=== PATIENT | male | born 1930 | race Caucasian/White ===

== ENCOUNTER 2018-10-16 07:52 | Observation (INO) ==
[2018-10-16] MEDS ORDERED: SODIUM CHLORIDE 0.9% 1000ML 1,000 ML IV SCH (08:15)
[2018-10-16 09:01] LABS: Appearance Urine Clear (Clear); Bilirubin Urine Negative (Negative); Blood Urine Trace (Negative); Color Urine Yellow; Glucose Urine UA Negative (Negative); Ketones Urine 1+ (Negative); Leukocyte Esterase Urine Negative (Negative); Nitrite Urine Negative (Negative); Protein Urine Trace (Negative); Specific Gravity Urine 1.023 (1.000-1.030); Urobilinogen Urine Negative (Negative)
[2018-10-16 09:14] LABS: Basophils # (auto) 0.03 K/uL (0-0.2); Basophils % (auto) 0.2 %; Eosinophils # (auto) 0.01 K/uL (0-0.5); Eosinophils % (auto) 0.1 %; Hematocrit (blood only) 45.2 % (42-52); Hemoglobin 15.4 g/dL (14.0-18.0); Immature Granulocytes # (auto) 0.05 K/uL (0.00-0.02); Immature Granulocytes % (auto) 0.3 %; Lymphocytes # (auto) 1.65 K/uL (1.2-3.4); Lymphocytes % (auto) 9.4 %; Mean Corpuscular Hgb Conc 34.1 g/dL (32-36); Mean Corpuscular Volume 99.6 fL (80-100); Mean Platelet Volume 11.6 fL (7.4-10.4); Monocytes # (auto) 0.72 K/uL (0.11-0.59); Monocytes % (auto) 4.1 %; Neutrophils # (auto) 15.12 K/uL (1.4-6.5); Neutrophils % (auto) 85.9 %; Platelet Count 143 K/uL (130-400); RDW Standard Deviation 50.3 fL (36.4-46.3); Red Blood Count 4.54 M/uL (4.7-6.1); White Blood Count 17.58 K/uL (4.8-10.8)
[2018-10-16 09:21] LABS: Prothrombin Time 10.3 Seconds (9.0-12.0)
[2018-10-16] MEDS ORDERED: ACETAMINOPHEN 500 MG TAB PO STA (09:22)
--- NOTE | 2018-10-16 09:31 | CT Scan Report ---
CT SCAN OF THE BRAIN WITHOUT IV CONTRAST CLINICAL HISTORY: Fall. COMPARISON STUDY: No priors. TECHNIQUE: Unenhanced axial CT scan of the brain is performed from the vertex to the skull base. A do se lowering technique was utilized adhering to the principles of ALARA. CT DOSE: 614.27 mGy.cm FINDINGS: Brain parenchyma: There are age-related involutional changes noting moderate subcortical and periven tricular microangiopathic change. There is no hemorrhage, mass effect, or evidence of acute territori al ischemia by CT criteria. Henderson-white matter differentiation is preserved. No extra-axial fluid rob ection is seen. Ventricles, sulci, cisterns: Prominent secondary to involutional change. Intracranial vasculature: There is atherosclerotic calcification of the cavernous carotid and vertebr al arteries. Calvarium: The skeletal structures are osteopenic. No depressed calvarial fracture is seen. Sinuses and mastoids: The visualized paranasal sinuses are clear. The mastoid air cells are well pneu matized. Orbits: The bony orbits are grossly intact. IMPRESSION: There is no hemorrhage, mass effect, or evidence of acute territorial ischemia by CT antionette lópez. Electronically signed by: Mikey Hong M.D. 10/16/2018 9:30 AM
[2018-10-16 09:32] LABS: Albumin Level 3.7 gm/dl (3.4-5.0); Calcium 9.4 mg/dl (8.5-10.1); Est GFR (African American) 78.1; Est GFR (Non-African American) 67.4; Potassium 4.6 mmol/L (3.5-5.1)
--- NOTE | 2018-10-16 09:38 | XRay Report ---
LEFT SHOULDER 3 VIEWS CLINICAL HISTORY: Fall. Shoulder pain. FINDINGS: 3 views of the left shoulder are obtained. No prior studies are available for comparison at the time of dictation. The skeletal structures are osteopenic. There is no radiographic evidence of fracture or dislocation. Productive degenerative change is noted at the acromioclavicular joint. The glenohumeral articulation appears preserved. Degenerative sclerosis is seen in the greater tuberosity of the humeral head. The overlying soft tissues are normal in appearance. Atherosclerotic calcificat ion is noted in the left brachial artery. The visualized left lung parenchyma appears clear. Midline sternotomy wires are noted. IMPRESSION: 1. There is no radiographic evidence of left shoulder fracture or dislocation. 2. Osteopenia and degenerative change as above. Electronically signed by: Mikey Hong M.D. 10/16/2018 9:36 AM
[2018-10-16 09:41] LABS: Bilirubin,Total 0.8 mg/dl (0.2-1); Creatine Kinase MB 8.7 ng/ml (0.5-3.6); Globulin 3.8 gm/dl (2.5-4.0); Total Protein 7.5 gm/dl (6.4-8.2); Troponin I 0.233 ng/ml (0-0.045)
--- NOTE | 2018-10-16 09:47 | XRay Report ---
XR chest 1V portable CLINICAL HISTORY: Chest Pain dyspnea COMPARISON STUDY: No previous studies for comparison. FINDINGS: Mild cardia megaly. Prior median sternotomy. Lungs are clear. Platelike atelectasis right b ase. IMPRESSION: Mild cardiomegaly. No acute process. The above report was generated using voice recognition software. It may contain grammatical, syntax or spelling errors. Electronically signed by: Telly Martinez M.D. 10/16/2018 9:45 AM
[2018-10-16 10:14] LABS: Bacteria Urine Negative (Negative); Epithelial Cell Urine 0-5 /lpf (0-5); RBC Urine 0-4 /hpf (0-4); WBC Urine 0-5 /hpf (0-5)
--- NOTE | 2018-10-16 10:16 | Emergency Department Note ---
Entered by Tiffanie Stone acting as a scribe for Kevin May DO History of Present Illness General Chief complaint: Fall Stated complaint: fall/ arm pain, skin tears Time Seen by Provider: 10/16/18 07:54 Source: patient and family (daughter) History of Present Illness Provider complaint: fall Onset (ago): hour(s) 10 Location: left and right Pain Consistency: + other (episode) Quality: + other (fall) Associated symptoms: + other (upper right arm pain, left shoulder pain, right hip pain. denies: neck pain, back pain, loss of consciousness) The patient is an 88 year old male who presents to the Emergency Room with complaints of an episode of a fall beginning 10 hours ago. His daughter reports the patient lives with her, and was laying on the bathroom floor for about 8 hours before she found him this the morning. The patient notes he fell while brushing his teeth. He reports upper right arm pain, left shoulder pain, and right hip pain. He denies neck or back pain. The patient denies hitting his head or any loss of consciousness in the fall. He states he is on Plavix. His daughter notes the patient usually wears oxygen last night, but did not last night. Home Medications Home Medications Medication Instructions Recorded Confirmed Type albuterol sulfate [ProAir HFA] 2 puff INHALATION Q4H PRN 10/16/18 10/16/18 History allopurinol 300 mg PO DAILY 10/16/18 10/16/18 History atorvastatin 40 mg PO DAILY 10/16/18 10/16/18 History benzonatate 100 mg PO TID PRN 10/16/18 10/16/18 History budesonide-formoterol [Symbicort] 2 puff INHALATION BID 10/16/18 10/16/18 History cephalexin 2,000 mg PO UD 10/16/18 10/16/18 History clobetasol 1 applic TOPICAL BID 10/16/18 10/16/18 History clopidogrel 75 mg PO DAILY 10/16/18 10/16/18 History colchicine 0.6 mg PO UD 10/16/18 10/16/18 History finasteride 5 mg PO DAILY 10/16/18 10/16/18 History fluticasone 2 spray INTRANASAL DAILY 10/16/18 10/16/18 History guaifenesin [Mucinex] 600 mg PO Q12H 10/16/18 10/16/18 History ipratropium-albuterol 3 ml INHALATION Q6H PRN 10/16/18 10/16/18 History wyjvr-[id number]-2-hmr-qnz-cswwmac-ast 1 cap PO DAILY 10/16/18 10/16/18 History [krill oil] lisinopril 5 mg PO DAILY 10/16/18 10/16/18 History montelukast 10 mg PO HS 10/16/18 10/16/18 History multivitamin 1 tab PO DAILY 10/16/18 10/16/18 History oxybutynin chloride 10 mg PO DAILY 10/16/18 10/16/18 History prednisone 10 mg PO DAILY 10/16/18 10/16/18 History triamcinolone acetonide 1 applic TOPICAL BID 10/16/18 10/16/18 History Allergies Allergy/AdvReac Type Severity Reaction Status Date / Time codeine AdvReac Severe Confusion Unverified 10/16/18 08:32 Past Med/Surg History Medical History HTN (hypertension) (Chronic) Social History Feels Safe at Home: Yes Smoking Status: Former smoker Review of Systems See HPI for pertinent positives & negatives. and A total of 10 systems reviewed and were otherwise negative Physical Exam Vital Signs Vital Signs - 24 hr 10/16/18 08:03 10/16/18 08:11 10/16/18 09:19 Temperature 36.8 C Temperature Source Oral Sepsis Recent Fever Within 48 Hours No Sepsis New/Unexplained Change in Mental Status No Sepsis Action Taken by Nursing No Action Required Pulse Rate 89 Pulse Rate [Left Finger] 81 Respiratory Rate 18 20 Blood Pressure 178/71 H Blood Pressure [Left Arm] 171/50 H Blood Pressure Mean 106 Blood Pressure Mean [Left Arm] 90 Pulse Oximetry 97 92 93 Oxygen Delivery Method Room Air Room Air Room Air 10/16/18 10:09 Temperature Temperature Source Sepsis Recent Fever Within 48 Hours Sepsis New/Unexplained Change in Mental Status Sepsis Action Taken by Nursing Pulse Rate Pulse Rate [Left Finger] 84 Respiratory Rate 20 Blood Pressure Blood Pressure [Left Arm] 172/58 H Blood Pressure Mean Blood Pressure Mean [Left Arm] 96 Pulse Oximetry 93 Oxygen Delivery Method CONSTITUTIONAL/VITAL SIGNS: Reviewed / noted above. GENERAL: Non-toxic in appearance. INTEGUMENTARY: Small skin tear to right lateral foot. Skin tear, about 3 inches by 2 inches, on right lateral arm with some surrounding ecchymosis. Ecchymosis diffusely around left arm. 2 inch by 0.25 inch skin tear to left lateral upper arm HEAD: Normocephalic. EYES: without scleral icterus or trauma. ENT/OROPHARYNX: clear and moist. LYMPHADENOPATHY/NECK: Is supple without lymphadenopathy or meningismus. RESPIRATORY: Lungs clear and equal. CARDIOVASCULAR: Regular rate and rhythm. GI/ABDOMEN: Soft and nontender. No organomegaly or pulsatile mass. No rebound or guarding. Normal bowel sounds. EXTREMITIES: Warm and well perfused. Mild discomfort with movement of left shoulder. BACK: No CVA tenderness. NEUROLOGICAL: Intact without focal deficits. PSYCHIATRIC: normal affect. MUSCULOSKELETAL: Normally developed with good muscle tone. Course 0758: Past medical records reviewed. The patient was evaluated in room C7, and a complete history and physical examination were performed. 1004: I reviewed the patient's case with Saumya Doll PA-C, [facility]. She will evaluate the patient for further management. 1007: Upon reevaluation, the patient is resting. I discussed test results with the patient and his family. They verbalized agreement with the treatment plan. Consultations Consultation #1: Saumya Doll PA-C, [facility]. Time: 10:04 Administered Medications Discontinued Medications Acetaminophen (Tylenol) 500 mg PO NOW STA Stop: 10/16/18 09:23 Last Admin: 10/16/18 09:24 Dose: 500 mg Documented by: [id number] Sodium Chloride (Nss 1000ml) 1,000 mls @ 999 mls/hr IV .Q1H1M [facility] Stop: 10/16/18 09:15 Last Admin: 10/16/18 09:04 Dose: 999 mls/hr Documented by: [id number] Medical Decision Making Differential Diagnosis Differential includes acute cardiac dysrhythmia, microinfarction, CVA, TIA, dehydration, anemia, electrolyte disturbance, seizure, trauma, intracranial b leeding, acute vascular catastrophe, thoracic aortic dissection, PE, abdominal aortic aneurysm rupture, ectopic rupture. Medical Records Attestation: I reviewed the patient's medical records. Home Medications Current Medication List: was personally reviewed by me Laboratory Data Attestation: I reviewed the patient's lab results. Result diagrams: 10/16/18 08:54 10/16/18 08:54 Lab Results 10/16/18 10/16/18 10/16/18 Range/Units 08:45 08:54 08:54 WBC 17.58 H (4.8-10.8) K/uL RBC 4.54 L (4.7-6.1) M/uL Hgb 15.4 (14.0-18.0) g/dL Hct 45.2 (42-52) % MCV 99.6 (80-100) fL MCH 33.9 (25-34) pg MCHC 34.1 (32-36) g/dL RDW Std Deviation 50.3 H (36.4-46.3) fL RDW Coeff of John 14.0 (11.5-14.5) % Plt Count 143 (130-400) K/uL MPV 11.6 H (7.4-10.4) fL Immature Gran % (Auto) 0.3 % Neut % (Auto) 85.9 % Lymph % (Auto) 9.4 % Moffat % (Auto) 4.1 % Eos % (Auto) 0.1 % Baso % (Auto) 0.2 % Immature Gran # (Auto) 0.05 H (0.00-0.02) K/uL Neut # (Auto) 15.12 H (1.4-6.5) K/uL Lymph # (Auto) 1.65 (1.2-3.4) K/uL Moffat # (Auto) 0.72 H (0.11-0.59) K/uL Eos # (Auto) 0.01 (0-0.5) K/uL Baso # (Auto) 0.03 (0-0.2) K/uL PT (9.0-12.0) Seconds INR (0.9-1.1) Sodium 136 (136-145) mmol/L Potassium 4.6 (3.5-5.1) mmol/L Chloride 101 (98-107) mmol/L Carbon Dioxide 25 (21-32) mmol/L Anion Gap 11.0 (3-11) BUN 38 H (7-18) mg/dl Creatinine 1.00 (0.6-1.4) mg/dl Est Cr Clr Drug Dosing 58.0 ml/min Est GFR ( Amer) 78.1 Est GFR (Non-Af Amer) 67.4 BUN/Creatinine Ratio 38.0 H (10-20) Glucose 81 (70-99) mg/dl Calcium 9.4 (8.5-10.1) mg/dl Total Bilirubin 0.8 (0.2-1) mg/dl AST 34 (15-37) U/L ALT 32 (12-78) U/L Alkaline Phosphatase 59 (45-117) U/L Total Creatine Kinase 475 H (39-308) U/L CK-MB (CK-2) 8.7 H (0.5-3.6) ng/ml CK/CKMB % Calc 1.8 (0-3.0) Troponin I 0.233 H* (0-0.045) ng/ml Total Protein 7.5 (6.4-8.2) gm/dl Albumin 3.7 (3.4-5.0) gm/dl Globulin 3.8 (2.5-4.0) gm/dl Albumin/Globulin Ratio 1.0 (0.9-2) Urine Color Yellow Urine Appearance Clear (Clear) Urine pH 5.0 (4.5-7.5) Ur Specific Marble 1.023 (1.000-1.030) Urine Protein Trace H (Negative) Urine Glucose (UA) Negative (Negative) Urine Ketones 1+ H (Negative) Urine Blood Trace H (Negative) Urine Nitrite Negative (Negative) Urine Bilirubin Negative (Negative) Urine Urobilinogen Negative (Negative) Ur Leukocyte Esterase Negative (Negative) Urine RBC 0-4 (0-4) /hpf Urine WBC 0-5 (0-5) /hpf Ur Epithelial Cells 0-5 (0-5) /lpf Urine Bacteria Negative (Negative) 10/16/18 10/16/18 Range/Units 08:54 08:54 WBC (4.8-10.8) K/uL RBC (4.7-6.1) M/uL Hgb (14.0-18.0) g/dL Hct (42-52) % MCV (80-100) fL MCH (25-34) pg MCHC (32-36) g/dL RDW Std Deviation (36.4-46.3) fL RDW Coeff of John (11.5-14.5) % Plt Count (130-400) K/uL MPV (7.4-10.4) fL Immature Gran % (Auto) % Neut % (Auto) % Lymph % (Auto) % Moffat % (Auto) % Eos % (Auto) % Baso % (Auto) % Immature Gran # (Auto) (0.00-0.02) K/uL Neut # (Auto) (1.4-6.5) K/uL Lymph # (Auto) (1.2-3.4) K/uL Moffat # (Auto) (0.11-0.59) K/uL Eos # (Auto) (0-0.5) K/uL Baso # (Auto) (0-0.2) K/uL PT 10.3 (9.0-12.0) Seconds INR 1.0 (0.9-1.1) Sodium (136-145) mmol/L Potassium (3.5-5.1) mmol/L Chloride (98-107) mmol/L Carbon Dioxide (21-32) mmol/L Anion Gap (3-11) BUN (7-18) mg/dl Creatinine (0.6-1.4) mg/dl Est Cr Clr Drug Dosing ml/min Est GFR ( Amer) Est GFR (Non-Af Amer) BUN/Creatinine Ratio (10-20) Glucose (70-99) mg/dl Calcium (8.5-10.1) mg/dl Total Bilirubin (0.2-1) mg/dl AST (15-37) U/L ALT (12-78) U/L Alkaline Phosphatase (45-117) U/L Total Creatine Kinase (39-308) U/L CK-MB (CK-2) Cancelled (0.5-3.6) ng/ml CK/CKMB % Calc Cancelled (0-3.0) Troponin I (0-0.045) ng/ml Total Protein (6.4-8.2) gm/dl Albumin (3.4-5.0) gm/dl Globulin (2.5-4.0) gm/dl Albumin/Globulin Ratio (0.9-2) Urine Color Urine Appearance (Clear) Urine pH (4.5-7.5) Ur Specific Marble (1.000-1.030) Urine Protein (Negative) Urine Glucose (UA) (Negative) Urine Ketones (Negative) Urine Blood (Negative) Urine Nitrite (Negative) Urine Bilirubin (Negative) Urine Urobilinogen (Negative) Ur Leukocyte Esterase (Negative) Urine RBC (0-4) /hpf Urine WBC (0-5) /hpf Ur Epithelial Cells (0-5) /lpf Urine Bacteria (Negative) Imaging Data Radiologist's Impression: Radiology results as stated below per my review and the radiologist's interpretation: CT SCAN OF THE BRAIN WITHOUT IV CONTRAST CLINICAL HISTORY: Fall. COMPARISON STUDY: No priors. TECHNIQUE: Unenhanced axial CT scan of the brain is performed from the vertex to the skull base. A dose lowering technique was utilized adhering to the principles of ALARA. CT DOSE: 614.27 mGy.cm FINDINGS: Brain parenchyma: There are age-related involutional changes noting moderate subcortical and periventricular microangiopathic change. There is no hemorrhage, mass effect, or evidence of acute territorial ischemia by CT criteria. Henderson- white matter differentiation is preserved. No extra-axial fluid collection is seen. Ventricles, sulci, cisterns: Prominent secondary to involutional change. Intracranial vasculature: There is atherosclerotic calcification of the cavernous carotid and vertebral arteries. Calvarium: The skeletal structures are osteopenic. No depressed calvarial fracture is seen. Sinuses and mastoids: The visualized paranasal sinuses are clear. The mastoid air cells are well pneumatized. Orbits: The bony orbits are grossly intact. IMPRESSION: There is no hemorrhage, mass effect, or evidence of acute territorial ischemia by CT criteria. Electronically signed by: Mikey Hong M.D. 10/16/2018 9:30 AM LEFT SHOULDER 3 VIEWS CLINICAL HISTORY: Fall. Shoulder pain. FINDINGS: 3 views of the left shoulder are obtained. No prior studies are available for comparison at the time of dictation. The skeletal structures are osteopenic. There is no radiographic evidence of fracture or dislocation. Productive degenerative change is noted at the acromioclavicular joint. The g lenohumeral articulation appears preserved. Degenerative sclerosis is seen in the greater tuberosity of the humeral head. The overlying soft tissues are normal in appearance. Atherosclerotic calcification is noted in the left brachial artery. The visualized left lung parenchyma appears clear. Midline sternotomy wires are noted. IMPRESSION: 1. There is no radiographic evidence of left shoulder fracture or dislocation. 2. Osteopenia and degenerative change as above. Electronically signed by: Mikey Hong M.D. 10/16/2018 9:36 AM XR chest 1V portable CLINICAL HISTORY: Chest Pain dyspnea COMPARISON STUDY: No previous studies for comparison. FINDINGS: Mild cardia megaly. Prior median sternotomy. Lungs are clear. Platelike atelectasis right base. IMPRESSION: Mild cardiomegaly. No acute process. The above report was generated using voice recognition software. It may contain grammatical, syntax or spelling errors. Electronically signed by: Telly Martinez M.D. 10/16/2018 9:45 AM ECG Data Attestation: I personally reviewed and interpreted this ECG as follows: Indication: other (fall) Rate (beats per minute): 88 Rhythm: normal sinus Findings: no PAC, no PVC and no ST elevation Blood Pressure Blood Pressure Findings: Elevated blood pressure Blood Pressure Disposition: elevated BP felt to be situational Head Trauma GCS Score: 15 MDM Narrative This is an 88-year-old male who presents to the ED with a chief complaint of a fall. The patient fell on the tile floor last night around 10 PM. His daughter found him at 630 this morning. He complains of left shoulder pain and has multiple skin tears and contusions throughout his extremities. He does not think that he hit his head. The patient's physical exam is noted above. He has multiple areas of bruising and skin tears on his upper and lower extremities. He has a large skin tear to the upper right lateral humeral area and a smaller one in the left lateral humeral area. He denies any abdominal tenderness or abdominal pains. He has no chest pains or shortness of breath at this time. A chest x-ray was negative for acute disease. X-ray of the left shoulder was negative for trauma. EKG shows a sinus rhythm at a rate of 88 without acute ischemic changes. His white blood cell count was 17.58. The BUN is 38. Creatinine was normal. Total CK was 475. Troponin is elevated at 0.2-3. Urine revealed trace ketones. The patient was hydrated with IV fluids. He and his family were told the results of the test. Because of the elevated troponin, the patient will be seen by the hospitalist for further inpatient evaluation of this. He does see Dr. Heck from [facility] cardiology. Impression & Plan Fall, Elevated troponin, Multiple skin tears, Multiple contusions Discharge Plan Visit Data Chief Complaint: Fall Stated Complaint: fall/ arm pain, skin tears ED Provider: Kevin May Discharge Problem: Fall, Elevated troponin, Multiple skin tears, Multiple contusions Patient Disposition: Being Evaluated by Hospitalist Forms Stand Alone Forms: [facility] Prescriptions Prescriptions: No Action multivitamin Tablet 1 tab PO DAILY RF: 0 atorvastatin 40 mg tablet 40 mg PO DAILY RF: 0 prednisone 10 mg tablet 10 mg PO DAILY RF: 0 ipratropium-albuterol 0.5 mg-3 mg(2.5 mg base)/3 mL solution for nebulization 3 ml Inhalation Q6H PRN (Reason: Shortness Of Breath Or Wheezing) RF: 0 oxybutynin chloride 10 mg tablet extended release 24hr 10 mg PO DAILY RF: 0 clobetasol 0.05 % cream 1 applic topical BID RF: 0 clopidogrel 75 mg tablet 75 mg PO DAILY RF: 0 triamcinolone acetonide 0.1 % cream 1 applic topical BID RF: 0 benzonatate 100 mg capsule 100 mg PO TID PRN (Reason: Cough) RF: 0 cephalexin 500 mg capsule 2,000 mg PO UD RF: 0 montelukast 10 mg tablet 10 mg PO HS RF: 0 allopurinol 300 mg tablet 300 mg PO DAILY RF: 0 lisinopril 5 mg tablet 5 mg PO DAILY RF: 0 albuterol sulfate [ProAir HFA] 90 mcg/actuation HFA aerosol inhaler 2 puff Inhalation Q4H PRN (Reason: Shortness Of Breath Or Wheezing) RF: 0 colchicine 0.6 mg tablet 0.6 mg PO UD RF: 0 fluticasone 50 mcg/actuation spray,suspension 2 spray Intranasal DAILY RF: 0 finasteride 5 mg tablet 5 mg PO DAILY RF: 0 Symbicort 160-4.5 mcg/actuation HFA aerosol inhaler 2 puff Inhalation BID RF: 0 wfwjq-dv-[id number]-yuf-uby-waegjao-ast [krill oil] 1,837-737-49-80 mg Capsule 1 cap PO DAILY RF: 0 guaifenesin [Mucinex] 600 mg Tablet Extended Release 12hr 600 mg PO Q12H RF: 0 Referrals Referrals: Armen Locke MD [Primary Care Provider] - Discharge Problem: Fall Qualifiers: Encounter type: initial encounter Qualified Code(s): W19.XXXA - Unspecified fall, initial encounter The scribe's documentation has been prepared under my direction and personally reviewed by me in its entirety. I confirm that the note above accurately reflect s all work, treatment, procedures, and medical decision making performed by me.
--- NOTE | 2018-10-16 11:15 | History & Physical Report ---
Date of Service October 16, 2018 Assessment & Plan (1) Fall: Pt with mechanical fall last night and was unable to get up and was on floor all night until this morning when found by daughter. C/O L shoulder pain, neck pain, upper back pain and R hip pain. Denies hitting head, LOC, SOB, CP, dizziness, palpitations. Has skin tears to bilateral upper extremities from fall In ER CT head: no acute changes, Xrays of L shoulder and pelvis show no fractures or dislocations. CT of C-Spine and Thoracic spine show no fractures. CXR: No acute process Pt given Tylenol in ER with reported some improvement of pain. -PT/OT eval -anticipate pt will need rehab placement, case management consulted (2) Elevated troponin: Troponin: 0.23, CPK: 475. No CP, SOB. EKG nonspecific ST changes In ER pt received 1L NSS -Monitor Vitals -Gentle IV fluids -Repeat EKG in am -Will trend troponin -Resting echo to evaluate for any wall motion abnormalities -Continue statin, plavix -Repeat CPK in am (3) Leukocytosis: WBC: 17. UA unremarkable for UTI, CXR: no acute process Pt reports last took prednisone one month ago. -monitor CBC (4) CAD (coronary artery disease): S/P CABG in 1989 Denies CP, SOB -as per above will trend troponin, repeat EKG (5) HTN (hypertension): -continue lisinopril (6) Dyslipidemia: -continue atorvastatin (7) Diabetes mellitus, type II: Diet controlled. A1c: 6.1 on 05/2018 -A1c in am -Diabetic diet, Monitor BSGs -Novolog sliding scale per protocol (8) COPD (chronic obstructive pulmonary disease): Chronic cough, denies increased cough. Denies SOB. -Continue duonebs, symbicort, singulair (9) PETRONA (obstructive sleep apnea): Hx PETRONA and nocturnal hypoxia. Does not use CPAP -continue 3L oxygen nasal cannula HS (10) PVD (peripheral vascular disease): History of femoral-popliteal bypass (11) BPH (benign prostatic hyperplasia): -continue finasteride, oxybutynin (12) Gout: -continue allopurinol DVT Prophylaxis -Heparin SQ DNR as per discussion with pt Follows with Dr Locke for routine care Pt was seen with Dr Fung. See addendum History of Present Illness Chief Complaint: Fall Primary Care Provider: Armen Locke MD Pt is 88 y/o M with PMH CAD s/p CABG in 1989, dyslipidemia, HTN, PVD, TIA, basal cell carcinoma to the face, COPD, diet-controlled DM II, BPH, PETRONA, gout, h/o bleeding peptic ulcer 2016 now off aspirin, presented to the ER complaint of fall that occurred last night. Pt states was brushing his teeth when he went to return to and reports he lost his balance and fell. He denies hitting head or LOC. Patient states he was unable to get himself up off the floor. He reports that he normally would be on the floor that he would not be able to get himself up secondary to lower extremity weakness. States has life alert however was not wearing at the time. His daughter found him this morning around 6:30 AM on the floor. Patient lives with daughter. Initially in ER pt c/o L shoulder pain and R hip pain. He reports hx getting injections to left shoulder, last approximately 6 months ago. Since ER arrival pt c/o neck and upper back pain. He denies CP, low back pain, YAO, other lower extremity pain. Reports chronic cough productive white sputum. Denies any recent worsening. Denies SOB. Uses duoneb TID for chronic cough. Denies fever/chills. Pt reports last took prednisone one month ago for cough. Sometimes takes prednisone for gout flares. Hx fall approx 6 months ago, reports tripped over shoe. Uses can and walker to ambulate. Denies fever/chills, diaphoresis, N/V/D/C, YAO, dizziness, syncope, vision changes, CP, orthopnea, palpitations, hemoptysis, sore throat, choking, otalgia, rhinorrhea, abdominal pain, paresthesias, extremity edema, new rashes, urinary symptoms. Hx echo 2017: EF: 60-64%, grade II diastolic dysfunction, moderate aortic valve sclerosis, mild tricupsid regurgitation, left atrium moderately enlarged. In ER pt found to have Tropnonin: 0.23, CPK: 475 and is being admitted for further evaluation. Allergies Allergy/AdvReac Type Severity Reaction Status Date / Time codeine AdvReac Severe Confusion Unverified 10/16/18 08:32 Home Medications Home Medications Medication Instructions Recorded Confirmed Type albuterol sulfate [ProAir HFA] 2 puff INHALATION Q4H PRN 10/16/18 10/16/18 History allopurinol 300 mg PO DAILY 10/16/18 10/16/18 History atorvastatin 40 mg PO PM 10/16/18 10/16/18 History benzonatate 100 mg PO TID PRN 10/16/18 10/16/18 History budesonide-formoterol [Symbicort] 2 puff INHALATION BID 10/16/18 10/16/18 His tory cephalexin 2,000 mg PO UD 10/16/18 10/16/18 History clobetasol 1 applic TOPICAL BID 10/16/18 10/16/18 History clopidogrel 75 mg PO DAILY 10/16/18 10/16/18 History colchicine 0.6 mg PO UD 10/16/18 10/16/18 History finasteride 5 mg PO DAILY 10/16/18 10/16/18 History fluticasone 2 spray INTRANASAL DAILY 10/16/18 10/16/18 History guaifenesin [Mucinex] 600 mg PO Q12H PRN 10/16/18 10/16/18 History ipratropium-albuterol 3 ml INHALATION Q6H PRN 10/16/18 10/16/18 History qdoax-[id number]-ast 1 cap PO DAILY 10/16/18 10/16/18 History [krill oil] lisinopril 5 mg PO DAILY 10/16/18 10/16/18 History montelukast 10 mg PO HS 10/16/18 10/16/18 History multivitamin 1 tab PO DAILY 10/16/18 10/16/18 History oxybutynin chloride 10 mg PO DAILY 10/16/18 10/16/18 History triamcinolone acetonide 1 applic TOPICAL BID 10/16/18 10/16/18 History Past Med/Surg History Medical History TIA (transient ischemic attack) (Chronic) History of bleeding peptic ulcer (Chronic) 2015. Was on 325mg aspirin and plavix. Since GI bleed, aspirin was discontinued and plavix continued Gout (Chronic) BPH (benign prostatic hyperplasia) (Chronic) COPD (chronic obstructive pulmonary disease) (Chronic) Basal cell carcinoma (Chronic) PVD (peripheral vascular disease) (Chronic) CAD (coronary artery disease) (Chronic) Dyslipidemia (Chronic) Diabetes mellitus, type II (Chronic) HTN (hypertension) (Chronic) PETRONA (obstructive sleep apnea) (Chronic) HTN (hypertension) (Chronic) Surgical History Hx of tonsillectomy (Chronic) History of femoropopliteal bypass (Chronic) History of coronary artery bypass graft (Chronic) 1989 Social History Communication Ability: Effective Beliefs That Will Affect Care: None Current Living Situation: Alone Other Information That Helps Us Care for You: No Feels Safe at Home: Yes Safety Concerns: Feels Safe At This Time Smoking Status: Former smoker Hx Alcohol Use: Yes Hx Substance Use: No Review of Systems All systems reviewed & are unremarkable except as noted in HPI & below Physical Exam 2 Vital Signs (Past 24 Hours): Last Vital Signs Temp 36.8 C 10/16/18 08:03 Pulse 84 10/16/18 10:09 Resp 20 10/16/18 10:09 BP 172/58 H 10/16/18 10:09 Pulse Ox 93 10/16/18 10:09 Physical Exam: General: no distress, WDWN Head: normocephalic, atraumatic Eyes: PERRL, EOM's intact, conjunctiva non-injected, anicteric ENT: normal inspection external ears, nose, mucous membranes mildly dry Neck: supple, trachea midline, mild tenderness to palpation inferiorior spinous processes Lungs: clear, no respiratory distress, no wheezing/rhonchi/rales CV: RRR, no pretibial edema Back: +tenderness to palpation upper back, limited ROM Abd: normal BS, soft, non-tender Ext: +tenderness to palpation R lateral hip, bilateral hip flexion and extension intact, bilateral knees non-tender and able to flex and extend. +ecchymosis right knee, left lower leg with brownish discoloration, no calf tenderness, Left shoulder +tenderness to palpation anterior shoulder, limited ROM, Right elbow and wrist with ROM intact and non-tender. Right shoulder and elbow and wrist non-tender with ROM intact. Ecchymosis LUE. Skin tear to L upper arm, R upper arm. Distal pulses intact, brisk capillary refill. Neuro: A&O x 3, no focal deficits noted, normal affect Skin: warm, dry, others as per above in extremities Results & Data Laboratory Results Short CBC 03/12/19 Range/Units 08:54 WBC 17.58 H (4.8-10.8) K/uL Hgb 15.4 (14.0-18.0) g/dL Hct 45.2 (42-52) % Plt Count 143 (130-400) K/uL BMP 10/16/18 08:54 Sodium 136 Potassium 4.6 Chloride 101 Carbon Dioxide 25 BUN 38 H Creatinine 1.00 Glucose 81 Calcium 9.4 Cardiac Enzymes 10/16/18 10/16/18 Range/Units 08:54 08:54 Total Creatine Kinase 475 H (39-308) U/L CK-MB (CK-2) 8.7 H Cancelled (0.5-3.6) ng/ml Troponin I 0.233 H* (0-0.045) ng/ml Liver Function 10/16/18 Range/Units 08:54 Total Bilirubin 0.8 (0.2-1) mg/dl AST 34 (15-37) U/L ALT 32 (12-78) U/L Alkaline Phosphatase 59 (45-117) U/L Albumin 3.7 (3.4-5.0) gm/dl Urine 10/16/18 Range/Units 08:45 Urine Color Yellow Urine Appearance Clear (Clear) Urine pH 5.0 (4.5-7.5) Ur Specific [place] 1.023 (1.000-1.030) Urine Protein Trace H (Negative) Urine Glucose (UA) Negative (Negative) Diagnostic Findings CT HEAD: IMPRESSION: There is no hemorrhage, mass effect, or evidence of acute territorial ischemia by CT criteria. CT C-SPINE: IMPRESSION: 1. There is no evidence of fracture or subluxation involving the cervical spine. 2. Osteopenia and spondylotic change as above. CT THORACIC SPINE: IMPRESSION: Considerable degenerative change. No acute process. L SHOULDER XRAY: IMPRESSION: 1. There is no radiographic evidence of left shoulder fracture or dislocation. 2. Osteopenia and degenerative change as above. R HIP/PELVIS XRAY: IMPRESSION: 1. There is no radiographic evidence of fracture involving the hips or bony pelvis. 2. A left hip arthroplasty is in place. CXR: IMPRESSION: Mild cardiomegaly. No acute process. ECG Rate (beats per minute): 88 Rhythm: sinus rhythm Findings: + nonspecific-ST abn Supervising Physician Co-Signing Physician Notes I have seen and examined the patient and have discussed the case with the provider above. I agree with the assessment and plan as stated. 88 yo M with h/o CAD s/p mechanical fall at home. Denies lightheadedness, chest pain, SOB, etc. Was unable to get up and stayed on floor overnight. Elevated CK and mild elevated trop likely a result of this. Significant ecchymosis and wounds on LUE>RUE. Significant soreness described in chest, arms, back all consistent with MSK pain. Tenderness to palpation is generalized. Euvolemic on exam. Plan as above. Pending echo results and PT/OT assessment and recs prior to discharge disposition. DO [place]on (1) Fall Encounter type: initial encounter Qualified Code(s): W19.XXXA - Unspecified fall, initial encounter
--- NOTE | 2018-10-16 11:43 | CT Scan Report ---
CT SCAN OF THE CERVICAL SPINE CLINICAL HISTORY: Fall. COMPARISON STUDY: No priors. TECHNIQUE: CT scan of the cervical spine is performed from the skull base to the upper thoracic spine . Images are reviewed in the axial, sagittal, and coronal planes. IV contrast was not administered fo r this examination. A dose lowering technique was utilized adhering to the principles of ALARA. CT DOSE: 1612.31 mGy.cm FINDINGS: Skeletal structures: The skeletal structures are osteopenic. There is no evidence of fracture or subl uxation involving the cervical spine. Vertebral body height and alignment are maintained. Anterior o steophytes are seen throughout. There is straightening of the cervical lordosis. The odontoid process and lateral masses are intact. The atlantoaxial articulation is preserved noting productive degenera tive change. The spinous processes appear intact. There is moderate multilevel cervical spondylosis. Uncovertebral and facet arthropathy contribute sterile foraminal stenosis at several levels. Intervertebral discs: There is moderate to advanced disc space narrowing seen from C3 -C4 through C6- C7. Central canal: Large posterior disc osteophyte complexes from C3-C4 through C6-C7 likely contribute t o multilevel acquired compromise of the central canal. Soft tissues: The prevertebral and paraspinous soft tissues are within normal limits. There is advanc ed atherosclerotic calcification of the carotid bulbs. Calvarium: The visualized calvarium at the skull base appears intact. Brain parenchyma: Partially visualized brain parenchyma the skull base is within normal limits. Sinuses and mastoids: The visualized paranasal sinuses are clear. The mastoid air cells are well pneu matized. IMPRESSION: 1. There is no evidence of fracture or subluxation involving the cervical spine. 2. Osteopenia and spondylotic change as above. Electronically signed by: Mikey Hong M.D. 10/16/2018 11:41 AM
--- NOTE | 2018-10-16 11:54 | XRay Report ---
SINGLE VIEW PELVIS; 2 VIEWS RIGHT HIP CLINICAL HISTORY: Fall. FINDINGS: AP supine views of the pelvis with AP and frog-leg views of the right hip are obtained. No prior studies are available for comparison at the time of dictation. The skeletal structures are oste openic. No fracture is seen involving the hips or bony pelvis. A left hip arthroplasty is in near greyson tomic alignment. No periprosthetic lucency is identified. Mild to moderate arthritic change is noted in the right hip. The overlying soft tissues are within normal limits. Advanced atherosclerotic calci fication is noted in the femoral arteries, with stents noted on the right. Lumbosacral spondylosis is partially imaged. IMPRESSION: 1. There is no radiographic evidence of fracture involving the hips or bony pelvis. 2. A left hip arthroplasty is in place. Electronically signed by: Mikey Hong M.D. 10/16/2018 11:52 AM
--- NOTE | 2018-10-16 12:00 | CT Scan Report ---
CT thoracic spine wo con CT DOSE: HISTORY: Trauma. Pain. pain, fall TECHNIQUE: Multiaxial CT images of the thoracic spine were performed and reformatted in the sagittal and coronal plane without the use of contrast. A dose lowering technique was utilized adhering to th e principles of ALARA. COMPARISON: None. FINDINGS: No fractures. No subluxation. Paraspinal soft tissues are unremarkable. Significant degener ative disc change throughout. No evidence for compression deformity. Basilar infiltrative/fibrotic ch anges present. IMPRESSION: Considerable degenerative change. No acute process. The above report was generated using voice recognition software. It may contain grammatical, syntax or spelling errors. Electronically signed by: Telly Martinez M.D. 10/16/2018 11:59 AM
[2018-10-16] MEDS ORDERED: OXYCODONE HCL IR 5 MG TAB (IMMEDIATE RELEASE) PO STA (12:03)
[2018-10-16] MEDS ORDERED: SODIUM CHLORIDE 0.9% 500 ML IV SCH (14:47)
[2018-10-16] MEDS ORDERED: diazePAM 2 MG TABLET PO ONE (14:51)
[2018-10-16] MEDS ORDERED: diazePAM 2 MG TABLET PO PRN (14:52)
[2018-10-16] MEDS ORDERED: FAMOTIDINE 20 MG in SYRINGE 3 ML IV ONE (15:00)
[2018-10-16] MEDS ORDERED: IBUPROFEN 800 MG TAB PO ONE (15:00)
[2018-10-16] MEDS ORDERED: FAMOTIDINE 20MG/5ML IV PUSH IV ONE (15:00)
[2018-10-16] MEDS ORDERED: guaiFENesin 600 MG TABCR PO PRN (15:00)
[2018-10-16] MEDS ORDERED: CARBOHYDRATES FOR HYPOGLYCEMIA PO PRN (15:20)
[2018-10-16] MEDS ORDERED: GLUCOSE 10 TABS/TUBE PO PRN (15:20)
[2018-10-16] MEDS ORDERED: GLUCOSE 40% GEL 15 GM TUBE PO PRN (15:20)
[2018-10-16] MEDS ORDERED: DEXTROSE 50% 50 ML SYRINGE IV PRN (15:20)
[2018-10-16] MEDS ORDERED: GLUCAGON FOR INJ 1 MG VIAL SQ PRN (15:20)
[2018-10-16] MEDS: LISINOPRIL 5 MG TAB PO SCH (15:44)
[2018-10-16] MEDS: CLOPIDOGREL BISULFATE 75 MG TAB PO SCH (15:45)
[2018-10-16] MEDS: FINASTERIDE 5 MG TAB PO SCH (15:45)
[2018-10-16] MEDS: ALBUT/IPRATROP 3MG/0.5MG NEB 3 ML VIAL NEB SCH ×2 (17:06→20:37)
[2018-10-16] MEDS: INSULIN ASPART 100 UNITS/ML 3 ML PEN SC SCH ×2 (17:42→21:06)
[2018-10-16] MEDS ORDERED: ATORVASTATIN 40 MG TAB PO SCH (21:00)
[2018-10-16] MEDS ORDERED: MONTELUKAST SODIUM 10 MG TABLET PO SCH (21:00)
[2018-10-16] MEDS: TRIAMCINOLONE ACET 0.1% CR 15 GM TUBE TOP SCH (21:03)
[2018-10-16] MEDS: HEPARIN SOD 5,000 UNIT/0.5 ML VIAL SQ SCH (21:04)
[2018-10-16] MEDS: BUDESONIDE/FORMOTEROL FUMARATE 160/4.5 60 PUFFS/INHALER INH SCH (21:04)
[2018-10-17] MEDS: ACETAMINOPHEN 325 MG TAB PO PRN ×3 (03:15→17:00)
[2018-10-17 06:45] LABS: BUN Creatinine Ratio 33.2 (10-20); Calcium 8.1 mg/dl (8.5-10.1); Creatinine Clr Calc Pharmacy 52.3 ml/min; Est GFR (African American) 68.8; Est GFR (Non-African American) 59.4; Potassium 4.4 mmol/L (3.5-5.1)
[2018-10-17 07:03] LABS: Basophils # (auto) 0.06 K/uL (0-0.2); Basophils % (auto) 0.6 %; Eosinophils # (auto) 0.33 K/uL (0-0.5); Eosinophils % (auto) 3.4 %; Hematocrit (blood only) 40.4 % (42-52); Hemoglobin 13.3 g/dL (14.0-18.0); Immature Granulocytes # (auto) 0.03 K/uL (0.00-0.02); Immature Granulocytes % (auto) 0.3 %; Lymphocytes % (auto) 16.7 %; Mean Corpuscular Hgb Conc 32.9 g/dL (32-36); Mean Corpuscular Volume 99.8 fL (80-100); Mean Platelet Volume 12.7 fL (7.4-10.4); Monocytes # (auto) 1.09 K/uL (0.11-0.59); Monocytes % (auto) 11.4 %; Neutrophils # (auto) 6.46 K/uL (1.4-6.5); Neutrophils % (auto) 67.6 %; Platelet Count 129 K/uL (130-400); Platelet Estimate Decreased (Normal); RDW Coefficient of Variation 14.3 % (11.5-14.5); RDW Standard Deviation 51.9 fL (36.4-46.3); Red Blood Count 4.05 M/uL (4.7-6.1); White Blood Count 9.57 K/uL (4.8-10.8)
[2018-10-17] MEDS ORDERED: PERFLUTREN LIPID MICROSPHERE (DEFINITY) IV ONE (07:24)
[2018-10-17] MEDS: ALBUT/IPRATROP 3MG/0.5MG NEB 3 ML VIAL NEB SCH ×3 (07:28→19:07)
[2018-10-17 08:21] LABS: Estimated Average Glucose 117 mg/dl; Hemoglobin A1C 5.7 % (4.5-5.6)
[2018-10-17] MEDS: TRIAMCINOLONE ACET 0.1% CR 15 GM TUBE TOP SCH (08:26)
[2018-10-17] MEDS: HEPARIN SOD 5,000 UNIT/0.5 ML VIAL SQ SCH (08:26)
[2018-10-17] MEDS: BUDESONIDE/FORMOTEROL FUMARATE 160/4.5 60 PUFFS/INHALER INH SCH (08:26)
[2018-10-17] MEDS: INSULIN ASPART 100 UNITS/ML 3 ML PEN SC SCH ×4 (08:26→18:03)
[2018-10-17] MEDS: FINASTERIDE 5 MG TAB PO SCH (08:28)
[2018-10-17] MEDS: CLOPIDOGREL BISULFATE 75 MG TAB PO SCH (08:28)
[2018-10-17] MEDS: LISINOPRIL 5 MG TAB PO SCH (08:29)
[2018-10-17] MEDS ORDERED: MULTIVITAMIN TAB PO SCH (09:00)
[2018-10-17] MEDS ORDERED: PANTOprazole 40 MG TAB PO SCH (09:00)
[2018-10-17] MEDS ORDERED: ALLOPURINOL 300 MG TAB PO SCH (09:00)
[2018-10-17] MEDS ORDERED: FLUTICASONE PROPIONATE NA SPR 16 GM BTL SCH (09:00)
[2018-10-17] MEDS ORDERED: OXYBUTYNIN CHLORIDE XL 5 MG TABCR PO SCH (09:00)
--- NOTE | 2018-10-17 13:38 | Hospitalist Progress Note ---
Date of Service October 17, 2018 Assessment & Plan (1) Fall: Pt with mechanical fall last night and was unable to get up and was on floor all night until this morning when found by daughter. C/O L shoulder pain, neck pain, upper back pain and R hip pain. Denies hitting head, LOC, SOB, CP, dizziness, palpitations. Has skin tears to bilateral upper extremities from fall In ER CT head: no acute changes, Xrays of L shoulder and pelvis show no fractures or dislocations. CT of C-Spine and Thoracic spine show no fractures. CXR: No acute process Pt given Tylenol in ER with reported some improvement of pain. -PT/OT eval -anticipate pt will need rehab placement, case management consulted (2) Elevated troponin: Troponin: 0.23, CPK: 475. No CP, SOB. EKG nonspecific ST changes In ER pt received 1L NSS -Monitor Vitals -Gentle IV fluids -Repeat EKG in am -Will trend troponin -Resting echo to evaluate for any wall motion abnormalities -Continue statin, plavix -Repeat CPK in am (3) Leukocytosis: WBC: 17. UA unremarkable for UTI, CXR: no acute process Pt reports last took prednisone one month ago. -monitor CBC (4) CAD (coronary artery disease): S/P CABG in 1989 Denies CP, SOB -as per above will trend troponin, repeat EKG (5) HTN (hypertension): -continue lisinopril (6) Dyslipidemia: -continue atorvastatin (7) Diabetes mellitus, type II: Diet controlled. A1c: 6.1 on 05/2018 -A1c in am -Diabetic diet, Monitor BSGs -Novolog sliding scale per protocol (8) COPD (chronic obstructive pulmonary disease): Chronic cough, denies increased cough. Denies SOB. -Continue duonebs, symbicort, singulair (9) PETRONA (obstructive sleep apnea): Hx PETRONA and nocturnal hypoxia. Does not use CPAP -continue 3L oxygen nasal cannula HS (10) PVD (peripheral vascular disease): History of femoral-popliteal bypass (11) BPH (benign prostatic hyperplasia): -continue finasteride, oxybutynin (12) Gout: -continue allopurinol DVT Prophylaxis -Heparin SQ DNR as per discussion with pt Follows with Dr Locke for routine care Pt was seen with Dr Fung. See addendum Physical Exam Vital Signs (Past 24 Hours): Last Vital Signs Temp 37 C 10/17/18 11:44 Pulse 65 10/17/18 11:44 Resp 18 10/17/18 11:44 BP 186/96 H 10/17/18 11:44 Pulse Ox 94 10/17/18 11:44 Results & Data Laboratory Results Short CBC 10/17/18 Range/Units 05:26 WBC 9.57 (4.8-10.8) K/uL Hgb 13.3 L (14.0-18.0) g/dL Hct 40.4 L (42-52) % Plt Count 129 L (130-400) K/uL BMP 10/17/18 05:26 Sodium 137 Potassium 4.4 Chloride 105 Carbon Dioxide 27 BUN 37 H Creatinine 1.11 Glucose 76 Calcium 8.1 L Cardiac Enzymes 10/16/18 10/16/18 10/17/18 Range/Units 16:12 21:24 05:26 Total Creatine Kinase 331 H (39-308) U/L Troponin I 0.394 H* 0.328 H* (0-0.045) ng/ml Medications Administered Current Inpatient Medications Acetaminophen (Tylenol) 650 mg PO Q4H PRN PRN Reason: Pain or Fever Stop: 11/15/18 14:46 Last Admin: 10/17/18 08:36 Dose: 650 mg Documented by: Albuterol (Duoneb) 3 ml NEB TIDR VALARIE Stop: 11/15/18 14:59 Last Admin: 10/17/18 07:28 Dose: 3 ml Documented by: Allopurinol (Zyloprim) 300 mg PO DAILY VALARIE Stop: 11/16/18 08:59 Last Admin: 10/17/18 08:29 Dose: 300 mg Documented by: Atorvastatin Calcium (Lipitor) 40 mg PO PM VALARIE Stop: 11/15/18 20:59 Budesonide/Formoterol Fumarate (Symbicort 160mcg/4.5mcg) 2 puffs INH BID VALARIE Stop: 11/15/18 20:59 Last Admin: 10/17/18 08:26 Dose: 2 puffs Documented by: Clopidogrel Bisulfate (Plavix) 75 mg PO DAILY VALARIE Stop: 11/15/18 14:59 Last Admin: 10/17/18 08:28 Dose: 75 mg Documented by: Dextrose (Dextrose 50%) 25 - 50 ml IV UD PRN; Protocol PRN Reason: Hypoglycemia Protocol Stop: 11/15/18 15:19 Diazepam (Valium) 2 mg PO BID PRN PRN Reason: muscle pain Stop: 11/15/18 14:51 Finasteride (Proscar) 5 mg PO DAILY VALARIE Stop: 11/15/18 14:59 Last Admin: 10/17/18 08:28 Dose: 5 mg Documented by: Fluticasone Propionate (Flonase) 2 sprays NA DAILY VALARIE Stop: 11/16/18 08:59 Last Admin: 10/17/18 08:27 Dose: 2 sprays Documented by: Glucagon (Glucagen) 1 mg SQ UD PRN; Protocol PRN Reason: Hypoglycemia Protocol Stop: 11/15/18 15:19 Glucose (Glucose 40%) 15 - 30 gm PO UD PRN; Protocol PRN Reason: Hypoglycemia Protocol Stop: 11/15/18 15:19 Glucose (Dex4 Glucose) 4 - 8 tabs PO UD PRN; Protocol PRN Reason: Hypoglycemia Protocol Stop: 11/15/18 15:19 Guaifenesin (Mucinex) 600 mg PO Q12H PRN PRN Reason: Cough Stop: 11/15/18 14:59 Heparin Sodium (Porcine) (Heparin Sodium (Porcine)) 5,000 units SQ Q12 VALARIE Stop: 11/15/18 20:59 Last Admin: 10/17/18 08:26 Dose: 5,000 units Documented by: Insulin Aspart (Novolog Flexpen) 0 units SC ACHS VALARIE Stop: 11/15/18 16:29 Last Admin: 10/17/18 12:26 Dose: Not Given Documented by: Lisinopril (Zestril) 5 mg PO DAILY VALARIE Stop: 11/15/18 14:59 Last Admin: 10/17/18 08:29 Dose: 5 mg Documented by: Miscellaneous (Carbohydrates For Hypoglycemia) 15 - 30 gm PO UD PRN PRN Reason: Hypoglycemia Treatment Stop: 11/15/18 15:19 Montelukast Sodium (Singulair) 10 mg PO HS VALARIE Stop: 11/15/18 20:59 Last Admin: 10/16/18 21:03 Dose: 10 mg Documented by: Multivitamins (Multivitamin Tab) 1 tab PO DAILY VALARIE Stop: 11/16/18 08:59 Last Admin: 10/17/18 08:28 Dose: 1 tab Documented by: Oxybutynin Chloride (Ditropan Xl) 10 mg PO DAILY VALARIE Stop: 11/16/18 08:59 Last Admin: 10/17/18 08:28 Dose: 10 mg Documented by: Pantoprazole Sodium (Protonix) 40 mg PO QAM VALARIE Stop: 11/16/18 08:59 Last Admin: 10/17/18 08:28 Dose: 40 mg Documented by: Triamcinolone Acetonide (Kenalog 0.1%) 1 appln TOP BID VALARIE Stop: 11/15/18 20:59 Last Admin: 10/17/18 08:26 Dose: 1 appln Documented by: (1) Fall Encounter type: initial encounter Qualified Code(s): W19.XXXA - Unspecified fall, initial encounter
--- NOTE | 2018-10-17 16:21 | Discharge Summary ---
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 Pt states was brushing his teeth when he went to return to and reports he lost his balance and fell. He denies hitting head or LOC. Patient states he was unable to get himself up off the floor. He reports that he normally would be on the floor that he would not be able to get himself up secondary to lower extremity weakness. States has life alert however was not wearing at the time. His daughter found him this morning around 6:30 AM on the floor. Patient lives with daughter. Initially in ER pt c/o L shoulder pain and R hip pain. He reports hx getting injections to left shoulder, last approximately 6 months ago. Since ER arrival pt c/o neck and upper back pain. He denies CP, low back pain, YAO, other lower extremity pain. Reports chronic cough productive white sputum. Denies any recent worsening. Denies SOB. Uses duoneb TID for chronic cough. Denies fever/chills. Pt reports last took prednisone one month ago for cough. Sometimes takes prednisone for gout flares. Hx fall approx 6 months ago, reports tripped over shoe. Uses can and walker to ambulate. Denies fever/chills, diaphoresis, N/V/D/C, YAO, dizziness, syncope, vision changes, CP, orthopnea, palpitations, hemoptysis, sore throat, choking, otalgia, rhinorrhea, abdominal pain, paresthesias, extremity edema, new rashes, urinary symptoms. Hx echo 2017: EF: 60-64%, grade II diastolic dysfunction, moderate aortic valve sclerosis, mild tricupsid regurgitation, left atrium moderately enlarged. In ER pt found to have Tropnonin: 0.23, CPK: 475 and is being admitted for further evaluation. Admission Exam Per Admitting Provider Temp 36.8 C 10/16/18 08:03 Pulse 84 10/16/18 10:09 Resp 20 10/16/18 10:09 BP 172/58 H 10/16/18 10:09 Pulse Ox 93 10/16/18 10:09 Physical Exam: General: no distress, WDWN Head: normocephalic, atraumatic Eyes: PERRL, EOM's intact, conjunctiva non-injected, anicteric ENT: normal inspection external ears, nose, mucous membranes mildly dry Neck: supple, trachea midline, mild tenderness to palpation inferiorior spinous processes Lungs: clear, no respiratory distress, no wheezing/rhonchi/rales CV: RRR, no pretibial edema Back: +tenderness to palpation upper back, limited ROM Abd: normal BS, soft, non-tender Ext: +tenderness to palpation R lateral hip, bilateral hip flexion and extension intact, bilateral knees non-tender and able to flex and extend. +ecchymosis right knee, left lower leg with brownish discoloration, no calf tenderness, Left shoulder +tenderness to palpation anterior shoulder, limited ROM, Right elbow and wrist with ROM intact and non-tender. Right shoulder and elbow and wrist non-tender with ROM intact. Ecchymosis LUE. Skin tear to L upper arm, R upper arm. Distal pulses intact, brisk capillary refill. Neuro: A&O x 3, no focal deficits noted, normal affect Skin: warm, dry, others as per above in extremities Principal Diagnosis Status post fall Elevated troponin extensive ecchymosis of arms Discharge Data Allergies Allergy/AdvReac Type Severity Reaction Status Date / Time codeine AdvReac Severe Confusion Unverified 10/16/18 08:32 Consultations 10/16/18 10:07 ED Decision to Admit Stat 10/16/18 14:47 Consult Case Management - Discharge Planning Routine Ordered Studies 10/16/18 08:10 CT head/brain wo con Stat 10/16/18 11:06 CT cervical spine wo con Stat CT thoracic spine wo con Stat Hospital Course (1) Fall: (2) Elevated troponin: (3) Leukocytosis: (4) CAD (coronary artery disease): (5) HTN (hypertension): (6) Dyslipidemia: (7) Diabetes mellitus, type II: (8) COPD (chronic obstructive pulmonary disease): (9) PETRONA (obstructive sleep apnea): (10) PVD (peripheral vascular disease): (11) BPH (benign prostatic hyperplasia): (12) Gout: 88-year-old man presented to the emergency room after a fall the day prior to arrival. He lives with his daughter and was found lying on the bathroom floor for approximately 8 hours before she found him in the morning. The patient had suffered a mechanical fall with no loss of consciousness followed by prolonged immobilization. He reported brushing his teeth and turned tripping on something. Workup revealed an elevated troponin that did not rise on serial examination and was associated with an elevated CK in the 400s, which trended down. He had an echocardiogram revealing mild concentric LVH, and ejection fraction 65% with no segmental left ventricular wall motion abnormalities noted. He also had aortic valve sclerosis that was moderate without significant aortic valvular stenosis. He did not describe chest pain or other symptoms of ACS. Elevated troponin was thought secondary to elevated CK and prolonged immobilization. He notably had skin tears on his bilateral upper extremities after a fall and time down on the floor. Wound care was consulted and made recommendations for dressing changes on discharge. Formal wound care evaluation was recommended if this was worsening or not healing. In the ER a CT head revealed no acute changes. X-rays of the left shoulder and pelvis revealed no fractures or dislocations, and a CT of the C-spine and thoracic spine revealed no fractures. Chest x-ray revealed no acute process. Tylenol was given with some improvement of pain initially, however he did remain rather sore in his upper body generally, especially on hospital day 2. This was improved with valium, Ibuprofen and Tylenol. Physical therapy was consulted and recommended that despite a small loss and function he was recommended to return home as long as emergency call system was in place with his daughter. He lives in the basement of his daughter's home. Physical therapy was recommended to be continued via Home Health. Case management set this up at time of discharge. On day of discharge he was hemodynamically stable and afebrile. He did have significant skin tears and ecchymosis to bilateral upper extremities but this was stable. Discharge instructions per wound care were to clean the areas with saline and cover with large OPTi foam to be changed every 3 days and as needed for drainage. Physical exam otherwise revealed a normal heart and lung exam and the patient was mentating at baseline and tolerating p.o. Notably, the patient 's daughter revealed that he is a heavy drinker of alcohol and recommended we debt and budget counselor him on this. As this was mentioned just prior to discharge, it was not able to be discussed with the patient thoroughly. It would be recommended for primary care to evaluate and monitor that situation moving forward, and his daughter is uncertain if alcohol may have contributed to the fall. Follow-up with primary care was established prior to discharge. Total Time Total Time Spent Total Time Spent (In Minutes): 60 Total Time Includes: Examination of the Patient, Discharge Planning, Medication Reconciliation and Communication With Other Providers Discharge Plan Discharge Items Patient Disposition: Home - Home Health Services Reason For Visit: FALL, ELEVATED TROPONIN Discharge Diagnosis: Status post fall Elevated troponin extensive ecchymosis of arms Condition: Good Discharge Goals: Increase independence Activity: Resume your previous activity Non-emergency contact: Primary Care Provider Call non-emergency contact if: you have any medication questions, your symptoms worsen, your pain is not controlled, your pain is worsening, your pain is unusual for you, your pain is concerning for you and you have a fever Follow-up/Referrals: Armen Locke MD [Primary Care Provider] - Diet: Carb Consistent or DM2 and Heart Healthy Addtl Provider Instructions: Please take all medications as instructed on discharge list below. You have extensive bruising to her arms bilaterally and will require close follow-up of your wounds. We have set up home health nursing to come to your home and provide wound care and monitoring until you can see your primary care doctor. You have been seen by physical therapy and occupational therapy, and further services are recommended. We have set up home health therapist to come to her home and provide to this treatment. Please use Tylenol (Acetaminophen) for pain control. You may use up to 3000mg in 24 hours, but do not exceed this dose. Avoid NSAIDs such as Ibuprofen or Naproxen as these are blood thinners, until your bruising heals up. Please avoid alcohol. You have the following appointment: Date & Time 10/22/2018 12:00 PM Provider Armen Locke MD Department, General Internal Medicine [facility] It was a pleasure taking care of you! Please call if you have any questions or problems. You can reach a [facility] Hospitalist on duty at [facility] 24 hours a day by calling [phone]. Take care of yourself. Niru Fung, [facility] Hospitalist Prescriptions: Continued multivitamin Tablet 1 tab PO DAILY RF: 0 atorvastatin 40 mg tablet 40 mg PO PM RF: 0 ipratropium-albuterol 0.5 mg-3 mg(2.5 mg base)/3 mL solution for nebulization 3 ml Inhalation Q6H PRN (Reason: Shortness Of Breath Or Wheezing) RF: 0 oxybutynin chloride 10 mg tablet extended release 24hr 10 mg PO DAILY RF: 0 clobetasol 0.05 % cream 1 applic topical BID RF: 0 clopidogrel 75 mg tablet 75 mg PO DAILY RF: 0 triamcinolone acetonide 0.1 % cream 1 applic topical BID RF: 0 benzonatate 100 mg capsule 100 mg PO TID PRN (Reason: Cough) RF: 0 cephalexin 500 mg capsule 2,000 mg PO UD RF: 0 montelukast 10 mg tablet 10 mg PO HS RF: 0 allopurinol 300 mg tablet 300 mg PO DAILY RF: 0 lisinopril 5 mg tablet 5 mg PO DAILY RF: 0 albuterol sulfate [ProAir HFA] 90 mcg/actuation HFA aerosol inhaler 2 puff Inhalation Q4H PRN (Reason: Shortness Of Breath Or Wheezing) RF: 0 colchicine 0.6 mg tablet 0.6 mg PO UD RF: 0 fluticasone propionate 50 mcg/actuation spray,suspension 2 spray Intranasal DAILY RF: 0 finasteride 5 mg tablet 5 mg PO DAILY RF: 0 Symbicort 160-4.5 mcg/actuation HFA aerosol inhaler 2 puff Inhalation BID RF: 0 [id number] [krill oil] 1,560-494-94-80 mg Capsule 1 cap PO DAILY RF: 0 guaifenesin [Mucinex] 600 mg Tablet Extended Release 12hr 600 mg PO Q12H PRN (Reason: Cough) RF: 0 Stand-Alone Forms: [facility] Discharge Orders: Discharge Order (Routine); Ordered 10/17/18 Ordered By: Niru Fung Admission Data Admit Date/Time: 10/16/18 12:09 Attending Provider: Niru Fung Admit Provider: Niru Fung Primary Care Provider: Armen Locke Other Providers: Niru Fung Service: Telemetry Other Interventions: Discharge Summary Assessment (RN) Last Done: 10/17/18 17:59 DC Date/Time DO NOT enter until pt leaves facility: 10/17/18 20:00
== END 2018-10-17 20:00 | disposition home health service (06) ==
LOC: ED 07:52 → 2N 07:52